=== PATIENT | female | born 1985 | race Caucasian/White ===

== ENCOUNTER 2022-02-21 07:45 | Outpatient (RCR) | payer MEDICAID, SELFPAY ==
--- NOTE | 2022-02-21 11:22 | HP.PTEVAL_ITS ---
Patient's Visit Information ANA ROACH is a 36 year old F referred to Physical Therapy by ISAIAH Leung with a diagnosis of Greater trochanteric bursitis. Date of Evaluation: 02/21/22 Physical Therapist: Pj Castillo, PT, ATC - Visit Plan Frequency: 2-3x /Week Duration: 4-6 Weeks Plan: R LE stretching and strengthening (IT band, hip add, piriformis), core stab ex's, REIL, [id number] edu, bike, and HEP - Subjective Pt reports her R hip became sore for approximately 2 years. Pt reports she received an injection yesterday that has helped some with her pain. Pt notes she has also lost over 20 pounds in the last few months in an attempt to decrease her pain. 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 Pt denies tingling or numbness at this time other than her 2 toes adjacent to her great toe. Pt notes running causes her her the most pain. Pt also notes stairs and squatting all increase her pain. Pt also notes she has pain in the SI joint in her R LB. Pt reports she did have recent x-rays of her LB and R hip which revealed no significant findings. Pt reports she did have this pain in her 20's. Pt reports occasional sleep difficulty secondary to pain. 4/10 pain at rest, 8/10 pain at worst. - Pain R hip pain Pain Intensity (Out of 10): 4 Pain Intensity Range: 8 - Objective Neuro: B LE sensation is WNL to light touch. B patellar reflex= 2/3. Palpation: B knee medial joint line is sore. ROM: B LE's are equal and WFL. MMT: B hips are 5/5 with the exception of ER which is 4-/5 and painful. B knee flexion and ext= 5/5 throughout. Special tests: Pos IT band tightness. Gait: Pt h=displays sig valgus with forward lunge indicatiing core weakness. LS ROM: Pt is severely blocked from ext - Balance/Special Test Scores Lower Extremity Functional Score: 35 - Goals Goal 1:: Decrease R hip pain x 50% to aid with sleep Goal Time Frame: 4-6 Weeks Goal 2:: Increase core strength x 1 grade to aid with avoiding knee valgus with ambulation Goal Time Frame: 4-6 Weeks Goal 3:: Increase R LE flexibility x 1 grade to aid with decreasing R LE pain Goal Time Frame: 4-6 Weeks Goal 4:: I with HEP Goal Time Frame: 4-6 Weeks - Rehabilitation Potential Physical Therapy Diagnosis: Pt has R hip pain, weakness, and limited ROM secondary to R hip greater trochanteric bursitis Rehabilitation Potential: Good - Anticipated Interventions Patient/Client Instruction: Educate patient on: Condition, Plan of Care For the Purpose of:: To decrease pain, To increase ROM, To improve muscle perf ormance and motor function, To improve self management Therapeutic Exercise to Include: Strength training, Endurance training, Postural training, Flexibilty training, Dynamic Lumbar Stabilization, Lizette Exercises For the Purpose of:: To decrease pain, To increase ROM, To improve muscle performance and motor function Thank you for the opportunity to evaluate your patient. For Medicare and Medicare HMO plans, please review the plan of care and approve it. It will need to be FAXED BACK to us at [phone] for Medicare purposes. For Medicare only, by signing this I certify the plan of care. Please let me know if there are questions or concerns regarding this plan of care. Physician Signature: Date:
--- NOTE | 2022-06-06 09:54 | HP.PTDCNRP_ITS ---
ANA ROACH was seen in my office for initial evaluation on 02/21/22. The following Plan of Care was established for this patient: Initial Frequency: 2-3x /Week Initial Duration: 4-6 Weeks Patient/Client Instruction: Educate patient on: Condition, Plan of Care For the Purpose of:: To decrease pain, To increase ROM, To improve muscle performance and motor function, To improve self management Therapeutic Exercise to Include: Strength training, Endurance training, Postural training, Flexibilty training, Dynamic Lumbar Stabilization, Lizette Exercises For the Purpose of:: To decrease pain, To increase ROM, To improve muscle performance and motor function This patient was last seen in our office . Pertinent comments regarding their Physical therapy will appear below: Pt was treated for R hip pain for 1 PT visits through the date of 02/21/22. Pt has not returned through todays date and is discontinued at this time. At this point I will be discontinuing this patient from physical therapy. I w ould be happy to see this patient again in the future if found appropriate by the physician. Thank you! Pj Castillo, PT, ATC Balance/Gait/Functional tests - Balance/Special Test Scores Lower Extremity Functional Score: 35
== END 2022-02-21 19:00 | disposition home or self-care (01) ==
LOC: PT 07:45
PROVIDERS: PCP Family Medicine; Referring Provider Nurse Practitioner; Visit Provider Nurse Practitioner
DX: M70.60 Trochanteric bursitis, unspecified hip (principal); M70.70 Other bursitis of hip, unspecified hip
CPT/HCPCS: 97110; 97161

== ENCOUNTER 2023-09-06 20:39 | Emergency (ER) | payer OTHER, SELFPAY ==
[2023-09-06 20:40] VITALS: BP 103/78; PULSE 78; RESP 16; TEMP 36.4; O2SAT 99; BMI 27.4
--- NOTE | 2023-09-06 21:04 | EKG12_ITS ---
Test Reason : NAUSEA N V Blood Pressure : / mmHG Vent. Rate : 093 BPM Atrial Rate : 093 BPM P-R Int : 134 ms QRS Dur : 078 ms QT Int : 358 ms P-R-T Axes : 074 032 069 degrees QTc Int : 445 ms Normal sinus rhythm Nonspecific T wave abnormality Abnormal ECG Confirmed by TAPAN JERRY, MICHELE ([id number]), communications editor HERMAN PLUMMER ([id number]) on 09/07/2023 2:07:43 PM Referred By: Confirmed By:MICHELE PHELAN MD
[2023-09-06] MEDS: 0.9% Normal Saline (1000mL) 1,000 ML 999 ML IV (21:29)
[2023-09-06] MEDS: Ketorolac 15 MG/ML Vial IV (21:29)
[2023-09-06] MEDS: DiphenhydrAMINE 50 MG/ML Syringe 25 MG IV (21:29)
[2023-09-06] MEDS: Metoclopramide 10 MG/2 ML Vial IV (21:29)
[2023-09-06 21:44] LABS: Internal QC Validated? YES +Cl - CLEAR BKGD; Pregnancy, Serum, hCG Quali. NEGATIVE Negative
[2023-09-06 21:50] LABS: Absolute Lymphocyte Count 0.45 X10^3/uL (0.83-4.51); Absolute Neutrophil Count 10.6 X10^3/uL (2.0-7.7); Basophil# 0.04 X10^3/uL; Basophil% 0.3 % (0-1); Eosinophil# 0.04 X10^3/uL; Eosinophils% 0.3 % (0-5); Hematocrit 41.9 % (37-47); Hemoglobin 14.4 g/dL (12.0-15.0); Lymphocyte # 0.45 X10^3/ul (0.83-4.51); Lymphocyte % 3.9 % (19-41); Mean Corp Hgb Conc 34.4 g/dL (32-36); Mean Corpuscular Hgb 33.5 pg (27.0-32.0); Mean Corpuscular Volume 97.4 fL (81-99); Mean Platelet Vol. 9.5 fl (6.2-12.0); Monocyte% 4.3 % (0-10); NRBC Flagged by Analyzer 0 % (0-5); Neutrophil # 10.56 X10^3/uL (2.7-7.7); Neutrophil % 90.9 % (47-70); POSITIVE DIFFERENTIAL YES; Platelet Count 204 K/mm3 (150-450); RBC Distribution Width CV 11.8 % (11.6-14.6); RBC Distribution Width SD 42.2 fl (35.1-43.9); White Blood Count 11.6 K/mm3 (4.4-11.0)
[2023-09-06 21:52] LABS: ALB/GLOB Ratio 1.3 RATIO (0.9-2.4); AST(SGOT) 14 U/L (15-37); Alanine Aminotransfer ALT/SGPT 22 U/L (13-56); Albumin, Serum 3.8 g/dL (3.2-5.0); Alkaline Phosphatase 43 U/L (45-117); Anion Gap 9 (5-15); BUN 15 mg/dL (7-18); BUN/Creat Ratio 17.6 RATIO (10-20); Calcium,Total 9.1 mg/dL (8.5-10.1); Chloride 104 mmol/L (98-107); Creatinine, Serum 0.85 mg/dL (0.55-1.02); EST Glomerular Filtration Rate 79 mL/min (>60); Est Glom Filt Rate - Afr Amer 95 mL/min (>60); Estimated Creatinine Clearance 75.97 ml/min; Glucose 106 mg/dL (74-106); Potassium 3.1 mmol/L (3.5-5.1); Protein, Total 6.8 g/dL (6.4-8.2); Sodium Level 140 mmol/L (136-145)
[2023-09-06 21:53] LABS: Differential Indicated SCAN CRITERIA MET
[2023-09-06] MEDS: 0.9% Normal Saline (1000mL) 1,000 ML 1000 ML IV (22:00)
[2023-09-06 22:38] LABS: Differential Comment SCANNED
[2023-09-06 23:13] LABS: Bacteria 0 SEEN /hpf (None Seen)
[2023-09-06 23:14] LABS: Color, Urine Yellow (Yellow); Glucose, Dipstick Normal (Normal); Leukocyte Esterase-Dipstick 25 /ul (Negative); Nitrite-Dipstick Negative (Negative); Occult Blood-Urine 10 /ul (Negative); Protein-Dipstick 15 mg/dl (Negative); Urine Bilirubin Dipstick Negative (Negative); Urine Clarity Clear (Clear); Urine Urobilinogen Normal (Normal)
[2023-09-06 23:18] LABS: Ketone-Dipstick 150 mg/dl (Negative)
[2023-09-06 23:21] LABS: Red Blood Cells-Urine 0-5 SEEN /hpf (0-5); Squamous Epithelial Cells - UA 0-5 SEEN /hpf (5-10); White Blood Cells 0-5 SEEN /hpf (0-5)
[2023-09-06 23:22] LABS: Mucous, Urine 1+ /hpf (<or=2+)
[2023-09-06 23:23] LABS: Hyaline Cast 5-10 SEEN /lpf (0-5)
[2023-09-06] MEDS: Potassium Chloride Oral Soln 20 MEQ/15 ML UDC 40 MEQ PO (23:26)
[2023-09-07] MEDS: proMETHazine 25 MG Tablet PO (00:03)
--- NOTE | 2023-09-07 00:27 | EDS_ITS ---
HPI HPI - GI History of Present Illness Chief Complaint: Nausea/Vomiting/Diarrhea Narrative Narrative: [id number] female presenting with nausea, vomiting, diarrhea. Yesterday with a little bit of nausea. She is taking OTC children who have nausea, vomit ing, diarrhea. Today she has had nausea and vomiting throughout the day. Multiple episodes diarrhea. No known fever at home. No cough or shortness of breath. No urinary or vaginal complaints. Patient did sit state that she felt lightheaded while she was having a bowel movement and when she stood up. Is a mild headache. PFSH PFSH Medical History Bipolar disorder Greater trochanteric bursitis of right hip Iliopsoas bursitis of right hip PTSD (post-traumatic stress disorder) Home Medications bupropion HCl 300 mg 24 hr tablet, extended release (Wellbutrin XL) 300 mg PO QAM 02/20/22 [History Last Taken Unknown] lamotrigine 200 mg tablet tablet PO 02/20/22 [History Last Taken Unknown] meloxicam 15 mg tablet 15 mg PO DAILY #30 tabs 02/20/22 [Rx Last Taken Unknown] multivitamin 1 tab PO DAILY 02/20/22 [History Last Taken Unknown] promethazine 25 mg tablet 25 mg PO TID PRN nausea and vomiting #20 tabs 09/06/23 [Rx Last Taken Unknown] Allergy/AdvReac Type Severity Reaction Status Date / Time levofloxacin [From Levaquin] Allergy unknown Verified 05/30/22 07:59 nitrofurantoin Allergy unknown Verified 05/30/22 07:59 [From Macrobid] sulfamethoxazole Allergy unknown Verified 05/30/22 07:59 [From Bactrim] trimethoprim [From Bactrim] Allergy unknown Verified 05/30/22 07:59 Family History Mother Heart disease Father Leukemia Social History household members: family and children Smoking Status: Never smoker alcohol intake: current alcohol intake frequency: 0-2 drinks per day ROS ROS ED Constitutional Constitutional ED: Reports chills; Denies fever(s) ENT ENT ED: Denies rhinorrhea or sore throat Cardiovascular Cardiovascular: Reports other Details: Lightheadedness ; Denies chest pain or palpitations Respiratory/Chest Respiratory/Chest: Denies cough or dyspnea Gastrointestinal Gastrointestinal: Reports abdominal pain, diarrhea, nausea and vomiting Genitourinary Genitourinary ED: Denies dysuria or hematuria Musculoskeletal Musculoskeletal: Reports myalgias Integumentary Denies abscess Neurologic Neurologic: Reports headache(s); Denies paresthesias Psychiatric Psychiatric: Denies anxiety or depression Endocrine Endocrinology: Denies polydipsia or polyphagia EXAM Physical Exam Const Vital Signs: 09/06/23 20:40 Temperature 97.6 F L Temperature Source Temporal Pulse Rate 78 Respiratory Rate 16 Blood Pressure 103/78 Blood Pressure Mean 86 Pulse Ox 99 Oxygen Delivery Method Room Air Positive well nourished General Appearance ED: NAD; Negative for pallor HEENT Reports moist mucous membranes normocephalic Eyes PERRL and EOMs intact bilaterally Resp normal respiratory effort Auscultation: Negative for rales, rhonchi or wheezes Cardio regular rate and regular rhythm GI non-tender, non-distended and no masses Back/Spine no CVA tenderness Neuro CN's II-XII intact bilaterally, moves all extremities and no sensory deficits noted Sensorium / Orientation: alert Psych mental status grossly normal and thought process normal Skin General Skin Exam: Negative for jaundice or pallor MDM MDM MDM Narrative Medical decision making narrative: Patient presenting with viral symptoms. She has 2 sick children at home. She did states she felt lightheaded when standing up today which could be an element of dehydration. Differential also includes electrolyte abnormalities, dysrhythmia, anemia, . Patient medicated with 2 L of IV fluids, Toradol, Phenergan p.o. as she states that Zofran did not help and she was able to tolerate this. Blood work shows that she has a minimal white blood cell count of 11.6. Hemoglobin stable 14.4. Platelets normal at 208. Renal function appears normal. LFTs are normal. hCG negative. EKG was obtained to assess for dysrhythmia and my interpretation this shows a normal sinus rhythm with a ventricular rate of 93 bpm without sign of ischemic change or ectopy. Urinalysis negative for infection but does show urine ketones. hCG negative. COVID and influenza were negative. On reevaluation the patient is feeling better. She is able to tolerate some p.o. potassium repletion. She states she still has some nausea. She is given a Phenergan pill here as well as a prescription for this for home. She is counseled on liquid diet tonight and bland diet tomorrow advance as tolerated. Continue to drink oral fluids. Return precautions were discussed. Impression: 1. Viral syndrome 2. Gastroenteritis Lab Data Attestation: I reviewed the patient's lab results. Labs: Laboratory Results - last 24 hr 09/06/23 09/06/23 09/06/23 21:27 21:27 21:43 WBC Cancelled 11.6 H Corrected WBC Cancelled RBC Cancelled 4.30 Hgb Cancelled 14.4 Hct Cancelled 41.9 MCV Cancelled 97.4 MCH Cancelled 33.5 H MCHC Cancelled 34.4 RDW Std Deviation Cancelled 42.2 RDW Coeff of [place] Cancelled 11.8 Plt Count Cancelled 204 MPV Cancelled 9.5 Immature Gran % (Auto) Cancelled 0.300 Neut % (Auto) Cancelled 90.9 H Lymph % (Auto) Cancelled 3.9 L [place] % (Auto) Cancelled 4.3 Eos % (Auto) Cancelled 0.3 Baso % (Auto) Cancelled 0.3 Absolute Neuts (auto) Cancelled 10.6 H Absolute Lymphs (auto) Cancelled 0.45 L Total Counted Cancelled Neutrophils % (Manual) Cancelled Band Neutrophils % Cancelled Lymphocytes % (Manual) Cancelled Monocytes % (Manual) Cancelled Eosinophils % (Manual) Cancelled Basophils % (Manual) Cancelled Metamyelocytes % Cancelled Myelocytes % Cancelled Promyelocytes % Cancelled Blast Cells % Cancelled Plasma Cell % (Manual) Cancelled Other Cells % Cancelled Nucleated RBC % Cancelled 0 Nucleated RBCs/100 WBC Cancelled Differential Comment Cancelled SCANNED Diff Path Review Cancelled Hypersegmented Neuts Cancelled Atypical Lymphocytes Cancelled Reactive Lymphocytes Cancelled Smudge Cells Cancelled Toxic Granulation Cancelled Toxic Vacuolation Cancelled Dohle Bodies Cancelled Brando Rods Cancelled Platelet Estimate Cancelled Plt Morphology Comment Cancelled RBC Morphology Cancelled Cancelled Polychromasia Cancelled Hypochromasia Cancelled Poikilocytosis Cancelled Basophilic Stippling Cancelled Anisocytosis Cancelled Microcytosis Cancelled Macrocytosis Cancelled Spherocytes Cancelled Sickle Cells Cancelled Target Cells Cancelled Tear Drop Cells Cancelled Ovalocytes Cancelled Stomatocytes Cancelled [place] Bodies Cancelled Onelia Cells Cancelled Bite Cells Cancelled Crenated Cell Cancelled Acanthocytes (Spur) Cancelled Rouleaux Cancelled Schistocytes Cancelled Sodium 140 Potassium 3.1 L Chloride 104 Carbon Dioxide 27.0 Anion Gap 9 BUN 15 Creatinine 0.85 Estim Creat Clear Calc 75.97 Est GFR (MDRD) Af Amer 95 Est GFR (MDRD) Non-Af 79 BUN/Creatinine Ratio 17.6 Glucose 106 Calcium 9.1 Total Bilirubin 0.50 AST 14 L ALT 22 Alkaline Phosphatase 43 L Total Protein 6.8 Albumin 3.8 Globulin 3.0 Albumin/Globulin Ratio 1.3 Serum , Qual NEGATIVE Urine Color Urine Clarity Urine pH Ur Specific [place] Urine Protein Urine Glucose (UA) Urine Ketones Urine Occult Blood Urine Nitrite Urine Bilirubin Urine Urobilinogen Ur Leukocyte Esterase Urine RBC Urine WBC Ur Squamous Epith Cells Urine Bacteria Hyaline Casts Urine Mucus 09/06/23 22:57 WBC Corrected WBC RBC Hgb Hct MCV MCH MCHC RDW Std Deviation RDW Coeff of Ladan Plt Count MPV Immature Gran % (Auto) Neut % (Auto) Lymph % (Auto) [place] % (Auto) Eos % (Auto) Baso % (Auto) Absolute Neuts (auto) Absolute Lymphs (auto) Total Counted Neutrophils % (Manual) Band Neutrophils % Lymphocytes % (Manual) Monocytes % (Manual) Eosinophils % (Manual) Basophils % (Manual) Metamyelocytes % Myelocytes % Promyelocytes % Blast Cells % Plasma Cell % (Manual) Other Cells % Nucleated RBC % Nucleated RBCs/100 WBC Differential Comment Diff Path Review Hypersegmented Neuts Atypical Lymphocytes Reactive Lymphocytes Smudge Cells Toxic Granulation Toxic Vacuolation Dohle Bodies Brando Rods Platelet Estimate Plt Morphology Comment RBC Morphology Polychromasia Hypochromasia Poikilocytosis Basophilic Stippling Anisocytosis Microcytosis Macrocytosis Spherocytes Sickle Cells Target Cells Tear Drop Cells Ovalocytes Stomatocytes [place] Bodies Cedar Cells Bite Cells Crenated Cell Acanthocytes (Spur) Rouleaux Schistocytes Sodium Potassium Chloride Carbon Dioxide Anion Gap BUN Creatinine Estim Creat Clear Calc Est GFR (MDRD) Af Amer Est GFR (MDRD) Non-Af BUN/Creatinine Ratio Glucose Calcium Total Bilirubin AST ALT Alkaline Phosphatase Total Protein Albumin Globulin Albumin/Globulin Ratio Serum , Qual Urine Color Yellow Urine Clarity Clear Urine pH 6.0 Ur Specific [place] 1.010 Urine Protein 15 H Urine Glucose (UA) Normal Urine Ketones 150 A* Urine Occult Blood 10 H Urine Nitrite Negative Urine Bilirubin Negative Urine Urobilinogen Normal Ur Leukocyte Esterase 25 H Urine RBC 0-5 SEEN Urine WBC 0-5 SEEN Ur Squamous Epith Cells 0-5 SEEN Urine Bacteria 0 SEEN Hyaline Casts 5-10 SEEN Urine Mucus 1+ Discharge Plan Triage Chief Complaint: Nausea/Vomiting/Diarrhea ED Provider: Stanton Chin Dx/Rx/DC Orders Instructions: ED Gastroenteritis, Viral (Adult) Prescriptions: New promethazine 25 mg tablet 25 mg PO TID PRN (Reason: nausea and vomiting) Qty: 20 0RF No Action bupropion HCl [Wellbutrin XL] 300 mg tablet extended release 24 hr 300 mg PO QAM lamotrigine 200 mg tablet PO multivitamin Tablet 1 tab PO DAILY meloxicam 15 mg tablet 15 mg PO DAILY Qty: 30 0RF Rx Instructions: Take once daily with a meal, do not take in conjunction with any other NSAIDS. Okay to take Tylenol for breakthrough pain. Primary Care Provider: Saji Williamson Referrals: Saji Williamson MD [Primary Care Provider] - Disposition Disposition: Home, Self Care Discharge Date/Time: 09/07/23 00:08
== END 2023-09-07 00:08 | disposition home or self-care (01) ==
PROVIDERS: Emergency Provider Student in an Organized Health Care Education/Training Program; PCP Family Medicine; Visit Provider Student in an Organized Health Care Education/Training Program
DX: K52.9 Noninfective gastroenteritis and colitis, unspecified (principal); R51.9 Headache, unspecified; B34.9 Viral infection, unspecified
CPT/HCPCS: 80053; 81001; 84703; 85025; 87428; 93005; 96361; 96374; 96375; 99283; J7030